=== PATIENT | female | born 1945 | race American Indian/Alaskan Native ===

== ENCOUNTER 2017-05-08 12:59 | Emergency (ER) | payer MEDICARE ==
[2017-05-08 13:11] VITALS: BMI 30.2
[2017-05-08 14:58] LABS: ALB/GLOB RATIO 1.4 (1.1-1.8); ALKALINE PHOSPHATASE 127 U/L (38-126); ALT/SGPT 27 U/L (7-56); AST/SGOT 20 U/L (14-36); BILIRUBIN,TOTAL 0.4 mg/dL (0.2-1.3); BLOOD UREA NITROGEN 27 mg/dL (7-21); CALCIUM 9.9 mg/dL (8.4-10.5); CARBON DIOXIDE 24 mmol/L (21-33); CHLORIDE 103 mmol/L (98-107); GFR AFRICAN-AMERICAN 54; GLUCOSE,RANDOM 237 mg/dL (70-110); POTASSIUM 4.1 mmol/L (3.6-5.0); SODIUM 139 mmol/L (132-148); TOTAL PROTEIN 7.5 g/dL (5.8-8.3)
[2017-05-08 15:09] LABS: TROPONIN I < 0.01 ng/mL
[2017-05-08 15:10] LABS: BASO # 0.02 K/mm3 (0.0-2.0); BASO % 0.3 % (0.0-3.0); EOS # 0.2 (0.0-0.7); EOS % 2.9 % (1.5-5.0); GRAN # 5.47 (1.4-6.5); GRAN % 74.5 % (50.0-68.0); LYMPH # 1.1 (1.2-3.4); LYMPH % 14.5 % (22.0-35.0); MEAN CELL VOLUME 83.7 fl (80.0-105.0); MEAN CORPUSCULAR HEMOGLOBIN 27.6 pg (25.0-35.0); MEAN PLATELET VOLUME 9.2 fl (7.0-11.0); MONO # 0.6 (0.1-0.6); MONO % 7.8 % (1.0-6.0); RED CELL DISTRIBUTION WIDTH 15.2 % (11.5-14.5); WHITE BLOOD COUNT 7.3 10^3/ul (4.5-11.0)
--- NOTE | 2017-05-08 15:32 | ED PDOC ---
Arrival/HPI - General Chief Complaint: Shortness Of Breath Time Seen by Provider: 05/08/17 13:02 Historian: Patient - History of Present Illness Narrative History of Present Illness (Text): 05/08/17 13:48 A 72 year old female, whose past medical history includes hypertension, kidney CA, diabetes type 2, and aneurysm, presents to the emergency department complaining of phlegm in throat and shortness of breath for few hours. Patient notes experiencing mild cough, but denies of any fever, chest pain, no phlegm production from cough, abdominal pain, nausea, vomiting, or any other complaints. No PMD Time/Duration: 4-6 hours Symptom Onset: Gradual Symptom Course: Unchanged Past Medical History - Provider Review Nursing Documentation Reviewed: Yes - Cardiac Hx Cardiac Disorders: Yes Hx Hypertension: Yes - Pulmonary Hx Respiratory Disorders: No - Neurological Hx Neurological Disorder: Yes (aneurysm) - HEENT Hx HEENT Disorder: No - Renal Hx Renal Disorder: No - Endocrine/Metabolic Hx Endocrine Disorders: Yes Hx Diabetes Mellitus Type 2: Yes - Hematological/Oncological Hx Blood Disorders: Yes Hx Cancer: Yes (kidney) - Integumentary Hx Dermatological Disorder: No - Musculoskeletal/Rheumatological Hx Musculoskeletal Disorders: No - Gastrointestinal Hx Gastrointestinal Disorders: No - Genitourinary/Gynecological Hx Genitourinary Disorders: No - Psychiatric Hx Psychophysiologic Disorder: No Hx Substance Use: No Family/Social History - Physician Review Nursing Documentation Reviewed: Yes Family/Social History: No Known Family HX Smoking Status: Heavy Smoker > 10 Cigarettes Daily Hx Alcohol Use: No Hx Substance Use: No Allergies/Home Meds Allergies/Adverse Reactions: Allergies No Known Allergies Allergy (Verified 05/08/17 13:08) Review of Systems - Physician Review All systems were reviewed & negative as marked: Yes - Review of Systems Constitutional: absent: Fevers Respiratory: SOB, Cough (mild cough). absent: Sputum (no phelgm production from cough) Cardiovascular: absent: Chest Pain Gastrointestinal: absent: Abdominal Pain, Nausea, Vomiting Physical Exam Vital Signs Reviewed: Yes Vital Signs Temp Pulse Resp BP Pulse Ox 05/08/17 17:00 98.6 F 90 17 140/82 100 05/08/17 15:45 99 H 18 138/69 99 05/08/17 13:10 98.4 F 108 H 18 141/72 97 Temperature: Afebrile Blood Pressure: Normal Pulse: Regular Respiratory Rate: Normal Appearance: Positive for: Well-Appearing, Non-Toxic, Comfortable Pain Distress: None Mental Status: Positive for: Alert and Oriented X 3 - Systems Exam Head: Present: Atraumatic, Normocephalic Pupils: Present: PERRL Extroacular Muscles: Present: EOMI Conjunctiva: Present: Normal Mouth: Present: Moist Mucous Membranes Neck: Present: Normal Range of Motion Respiratory/Chest: Present: Clear to Auscultation, Good Air Exchange. No: Respiratory Distress, Accessory Muscle Use Cardiovascular: Present: Regular Rate and Rhythm, Normal S1, S2. No: Murmurs Abdomen: Present: Normal Bowel Sounds. No: Tenderness, Distention, Peritoneal Signs Back: Present: Normal Inspection Upper Extremity: Present: Normal Inspection. No: Cyanosis, Edema Lower Extremity: Present: Normal Inspection. No: Edema Neurological: Present: GCS=15, CN II-XII Intact, Speech Normal Skin: Present: Warm, Dry, Normal Color. No: Rashes Psychiatric: Present: Alert, Oriented x 3, Normal Insight, Normal Concentration Medical Decision Making ED Course and Treatment: 05/08/17 13:53 Impression: 72 year old female with shortness of breath and mild cough. Physical exam is unremarkable. Plan: -- EKG -- Chest X-ray -- Labs -- Blood Culture -- Reassess and disposition Progress Notes: EKG: Ordered, reviewed, and independently interpreted the EKG. Rate : 111 BPM Rhythm : Sinus tachycardia Interpretation : Possible left atrial enlargement. Comparison : No previous EKG for comparison.' 05/08/2017 16:23 Chest X-ray FINDINGS: LUNGS: No active pulmonary disease. PLEURA: No significant pleural effusion identified, no pneumothorax apparent. CARDIOVASCULAR: Normal. OSSEOUS STRUCTURES: No significant abnormalities. VISUALIZED UPPER ABDOMEN: Normal. OTHER FINDINGS: None. IMPRESSION: No active disease. Dictator : Ran Witt MD - Lab Interpretations Lab Results: 05/08/17 14:20 05/08/17 14:20 Lab Results 05/08/17 14:20: Sodium 139, Potassium 4.1, Chloride 103, Carbon Dioxide 24, Anion Gap 16, BUN 27 H, Creatinine 1.2, Est GFR ( Amer) 54, Est GFR (Non- Af Amer) 44, Random Glucose 237 H, Calcium 9.9, Total Bilirubin 0.4, AST 20, ALT 27, Alkaline Phosphatase 127 H, Lactate Dehydrogenase 482, Total Creatine Kinase 171, Troponin I < 0.01, NT-Pro-B Natriuret Pep 36.7, Total Protein 7.5, Albumin 4.4, Globulin 3.1, Albumin/Globulin Ratio 1.4 05/08/17 14:20: WBC 7.3, RBC 4.42, Hgb 12.2, Hct 37.0, MCV 83.7, MCH 27.6, MCHC 33.0, RDW 15.2 H, Plt Count 240, MPV 9.2, Gran % 74.5 H, Lymph % (Auto) 14.5 L, [place] % (Auto) 7.8 H, Eos % (Auto) 2.9, Baso % (Auto) 0.3, Gran # 5.47, Lymph # 1.1 L, [place] # 0.6, Eos # 0.2, Baso # 0.02 I have reviewed the lab results: Yes - RAD Interpretation Radiology Orders: 05/08/17 13:53 CHEST PORTABLE [RAD] Stat - Scribe Statement The provider has reviewed the documentation as recorded by the Kendraibgiovany Kramer Provider Scribe Attestation: All medical record entries made by the Scribe were at my direction and personally dictated by me. I have reviewed the chart and agree that the record accurately reflects my personal performance of the history, physical exam, medical decision making, and the department course for this patient. I have also personally directed, reviewed, and agree with the discharge instructions and disposition. Disposition/Present on Arrival - Present on Arrival Any Indicators Present on Arrival: No History of DVT/PE: No History of Uncontrolled Diabetes: No Urinary Catheter: No History of Decub. Ulcer: No History Surgical Site Infection Following: None - Disposition Have Diagnosis and Disposition been Completed?: Yes Diagnosis: URI (upper respiratory infection) Disposition: HOME/ ROUTINE Disposition Time: 15:15 Condition: GOOD Discharge Instructions (ExitCare): Upper Respiratory Infection (ED) Additional Instructions: Thank you for letting us take care of you today. Your provider was Dr. Henning. You were treated for a respiratory infection. The emergency medical care you received today was directed at your acute symptoms. If you were prescribed any medication, please fill it and take as directed. It may take several days for your symptoms to resolve. Return to the Emergency Department if your symptoms worsen, do not improve, or if you have any other problems. Please contact your doctor or call one of the physicians/clinics you have been referred to that are listed on the Patient Visit Information form that is included in your discharge packet. Bring any paperwork you were given at discharge with you along with any medications you are taking to your follow up visit. Our treatment cannot replace ongoing medical care by a primary care provider (PCP) outside of the emergency department. Thank you for allowing the [facility] team to be part of your care today. Follow up with your doctor in 2-3 days for re-evaluation and further management. Prescriptions: Azithromycin [Zithromax] 250 mg PO DAILY #6 tab Guaifenesin [Mucinex] 600 mg PO Q12 PRN #10 tab.er.12h PRN Reason: Cough Referrals: Carlo Barry, [Primary Care Provider] - Follow up with primary Forms: [employer] (Nepali)
--- NOTE | 2017-05-08 16:24 | CARD ---
APPROVED REPORT EKG Measurement Heart [id number] <Conclusion> Sinus tachycardia Possible Left atrial enlargement
--- NOTE | 2017-05-08 16:25 | RAD ---
HISTORY: r/o infiltrate COMPARISON: No prior. FINDINGS: LUNGS: No active pulmonary disease. PLEURA: No significant pleural effusion identified, no pneumothorax apparent. CARDIOVASCULAR: Normal. OSSEOUS STRUCTURES: No significant abnormalities. VISUALIZED UPPER ABDOMEN: Normal. OTHER FINDINGS: None. IMPRESSION: No active disease.
[2017-05-08 20:26] VITALS: BP 140/82; PULSE 90; RESP 17; TEMP 98.6; O2SAT 100
== END 2017-05-08 17:20 | disposition home or self-care (01) ==
LOC: EDBD → ED 12:59
DX: J06.9 Acute upper respiratory infection, unspecified (principal)